=== PATIENT | female | born 1965 | race Caucasian/White ===

== ENCOUNTER 2025-01-19 09:21 | Outpatient (CLI) | payer OTHER, SELFPAY | END 2025-01-19 09:22 | disposition home or self-care (01) | LOC: NFLDREF 01-21 15:34 | PROVIDERS: PCP Physician Assistant Medical; Referring Provider Physician Assistant Medical; Visit Provider Physician Assistant Medical | DX: Z00.00 Encounter for general adult medical examination without abnormal findings (principal); E03.9 Hypothyroidism, unspecified; E78.5 Hyperlipidemia, unspecified; R74.8 Abnormal levels of other serum enzymes; R82.90 Unspecified abnormal findings in urine; Z11.4 Encounter for screening for human immunodeficiency virus [HIV]; Z11.59 Encounter for screening for other viral diseases | CPT/HCPCS: 80053; 80061; 84443; 86703; 86803; 87086 ==

== ENCOUNTER 2025-06-17 09:20 | Outpatient (CLI) | payer OTHER, SELFPAY | END 2025-06-17 09:21 | disposition home or self-care (01) | LOC: NFLDREF 06-25 | PROVIDERS: PCP Physician Assistant Medical; Referring Provider Physician Assistant Medical; Visit Provider Physician Assistant Medical | DX: E78.5 Hyperlipidemia, unspecified (principal) | CPT/HCPCS: 80061; 80076 ==